=== PATIENT | female | born 1985 | race African-American/Black ===

== ENCOUNTER 2018-03-24 02:06 | Emergency (ER) | payer SELFPAY ==
[2018-03-24] MEDS: oxyCODONE IR 5 MG TABLET PO (03:00)
[2018-03-24] MEDS ORDERED: KETOROLAC 30 MG/ML INJ. IV (03:00)
[2018-03-24] MEDS ORDERED: IV NORMAL SALINE 1000ML BAG 1,000 ML IV (03:00)
== END 2018-03-24 04:20 | disposition left against medical advice (07) ==
LOC: ER 02:06
DX: D57.1 Sickle-cell disease without crisis (principal); R10.9 Unspecified abdominal pain; M79.604 Pain in right leg; M79.605 Pain in left leg; J45.909 Unspecified asthma, uncomplicated; Z90.49 Acquired absence of other specified parts of digestive tract; F17.210 Nicotine dependence, cigarettes, uncomplicated; Z88.0 Allergy status to penicillin; Z88.6 Allergy status to analgesic agent; Z88.1 Allergy status to other antibiotic agents; Z88.8 Allergy status to other drugs, medicaments and biological substances
CPT/HCPCS: 71045; 93005; 99284; 99285-25

== ENCOUNTER 2018-03-24 14:09 | Emergency (ER) | payer SELFPAY ==
[2018-03-24 15:13] LABS: BILIRUBIN,URINE SMALL (NEG); CLARITY,URINE CLOUDY; COLOR,URINE AMBER; GLUCOSE,URINE NEGATIVE (NEG); NITRITE,URINE NEGATIVE (NEG); PH,URINE 5.5; PROTEIN,URINE NEGATIVE (NEG-TRACE)
[2018-03-24 15:13] LABS: URINE HCG POC HCG NEGATIVE (Negative)
[2018-03-24] MEDS ORDERED: ONDANSETRON ODT 4 MG TAB.RAPDIS. PO (15:15)
[2018-03-24] MEDS ORDERED: MORPHINE SULFATE 10 MG/ML VIAL. IM (15:15)
[2018-03-24] MEDS ORDERED: fentaNYL PF VIAL 100 MCG/2 ML VIAL IM (15:45)
[2018-03-24 15:50] LABS: BACTERIA,URINE 0 /HPF (0-FEW); RBC,URINE OCC /HPF (0-2); WBC,URINE OCC /HPF (0-4)
[2018-03-24 15:51] LABS: SQUAMOUS EPITHELIAL CELL,UR FEW /LPF
[2018-03-24] MEDS ORDERED: ONDANSETRON PF 4 MG/2 ML VIAL. (16:13)
== END 2018-03-24 16:52 | disposition left against medical advice (07) ==
LOC: ER 16:52
DX: D57.1 Sickle-cell disease without crisis (principal); M79.1 Myalgia; J45.909 Unspecified asthma, uncomplicated; I10 Essential (primary) hypertension; Z90.49 Acquired absence of other specified parts of digestive tract; Z88.0 Allergy status to penicillin; Z88.1 Allergy status to other antibiotic agents; Z88.5 Allergy status to narcotic agent; Z88.6 Allergy status to analgesic agent; Z88.8 Allergy status to other drugs, medicaments and biological substances
CPT/HCPCS: 81001; 81025; 99283